=== PATIENT | female | born 1965 | race Caucasian/White ===

== ENCOUNTER 2021-05-03 11:35 | Inpatient (IN) | payer OTHER ==
[~2021-05-03] VITALS: Ht 167.6 cm; Wt 109.1 kg
[~2021-05-03 11:35] MED LIST: BUPROPION HCL100 MG PO; LEVOXYL88 MCG PO; PROZAC20 MG PO; TRAMADOL HCL50 MG PO; TRAZODONE HCL50 MG PO
[2021-05-03] MEDS ORDERED: DICLOFENAC SODI75 MG PO (12:24)
[2021-05-03] MEDS ORDERED: BUPROPION HCL150 M2 PO (12:24)
--- NOTE | 2021-05-03 18:44 | NUR ---
PATIENT ADMITTED TO CCU FOR COVID PNA AT 1715. PATIENT PULLED FROM STRETCHER TO CCU BED X2 PERSON ASSIST. PT ON 15L NRB UPON ADMISSION. PATIENT'S ACCOMPANIES PATIENT UP TO CCU ROOM, BUT THEN WILL BE LEAVING PER CURRENT VISITOR POLICY. ADMISSION INTAKE COMPLETE. PATIENT TO RECEIVE IV REMDESEVIR AND DECADRON. PT ON CLEAR LIQUID DIET. TAM DRAINING CLEAR YELLOW URINE. FINE CRACKLES HEARD THROUGHOUT LUNGS. STARTING TO TITRATE PATIENT'S OXYGEN DOWN AND IS NOW CURRENTLY ON 6 L NC. PT IN SINUS RHYTHM. IV REMDESEVIR STARTED.
--- NOTE | 2021-05-03 19:53 | NUR ---
Patient resting on her left side. 4L nc in place. o2 sats 90%. Patient denies and further needs. call light in reach.
--- NOTE | 2021-05-03 21:15 | NUR ---
PATIENT RESTING ON HER BACK. REPORTS BACK PAIN /. PRN MEDS PROVIDED. TOLERATING 5L NC. LUNG SOUNDS ARE DIMINISHED THROUGHOUT. VS STABLE. PATIENT WILLING TO PRONE BUT NOT AT THIS TIME DUE TO BACK PAIN. WILL REEVALUATE AFTER PRN MEDS HAD TIME TO TAKE EFFECT. TAM CARE DONE. ASSISTED PATIENT WITH WASHING HER FACE. PATIENT DENIED GI UPSET. TOLERATING CLEAR LIQUIDS. ALLOWED PATIENT TO REST. CALL LIGHT IN REACH.
--- NOTE | 2021-05-03 23:00 | NUR ---
PATIENT PROVIDED WITH A SNACK WHICH SHE TOLERATED WELL. PATIENT ON 4L NC WITH HUMIDIFICATION. TOLERATING WELL. PRN COUGH MEDS PROVIDED. PATIENT DENIED BEING TIRED AT THIS TIME AND IS WATCHING TV. AGREES TO PRONE WHEN SHE IS READY FOR SLEEP. CALL LIGHT IN REACH.
--- NOTE | 2021-05-04 00:40 | NUR ---
CARE ASSUMED FROM EJ ROBERTS AT THIS TIME. ASSESSMENT COMPLETED. PT AWAKE AND WATCHING TV. DENIES PAIN. LUNGS DIM, 4L O2 VIA NC IN PLACE. DENIES SOB. HR REGULAR. BOWEL TONES ACTIVE, DENIES NAUSEA. IV INTACT AND SALINE LOCKED. VITAL SIGNS STABLE. TAM PATENT. PT DENIES NEEDS AT THIS TIME, CALL LIGHT WITHIN REACH.
--- NOTE | 2021-05-04 02:27 | EKG ---
[facility] [address] [facility] [place] [address] Signed Normal sinus rhythm Incomplete right bundle branch block Borderline ECG No previous ECGs available Confirmed by ALLISON THOMPSON MD ([id number]) on 05/04/2021 2:27:32 AM Electronically Signed By: ALLISON THOMPSON MD 05/04/21 0227 PATIENT NAME: RUSLAN TALBERT TORRES Electrocardiogram DATE OF : 67 PHYSICIAN: ALLISON THOMPSON MD REPORT #: [id number] REPORT IS CONFIDENTIAL AND NOT TO BE RELEASED WITHOUT AUTHORIZATION
--- NOTE | 2021-05-04 02:51 | NUR ---
IN TO CHECK ON PT WHO REMAINS AWAKE, STATES SHE HASN'T BEEN ABLE TO SLEEP MUCH. DENIES DISCOMFORT OR COMPLAINTS. PT DENIES NEEDS, VITAL SIGNS REMAIN STABLE. CALL LIGHT WITHIN REACH.
--- NOTE | 2021-05-04 04:35 | NUR ---
PT APPEARS TO BE SLEEPING AT THIS TIME, NO APPARENT DISTRESS. RESPIRATIONS EVEN AND UNLABORED, 4L VIA NC REMAINS IN PLACE.
--- NOTE | 2021-05-04 05:00 | NUR ---
PT CALLED TO REPORT THAT SHE WAS SWEATY AND STARTING TO CHILL. AFEBRILE AT THIS TIME, PT DECLINED NEEDING TYLENOL. NEW LINENS AND GOWN PROVIDED. BLOOD DRAWN FOR MORNING LABS FROM LEFT IV. TAM EMPTIED AND FRESH WATER PROVIDED. PT DENIES FURTHER REQUESTS.
--- NOTE | 2021-05-04 07:33 | NUR ---
REPORT RECIEVED FROM EJ ROBERTS. THIS RN ASSUMING CARE OF PT. PT RESTING IN BED WITH EYES CLOED. O2 AT 92% ON 4L O2 BY NC. PT ALLOWED TO REST. CALL LIGHT WIHTIN REACH. BED RAILS UP.
--- NOTE | 2021-05-04 09:00 | NUR ---
MORNING ASSESSMENT AND MEDICATION DUE. PT RESTING IN BED WITH EYES CLOSED. AWAKENS TO VOICE. PT ALERT AND ORIENTED TO ALL. REPORS 8/10 PAIN BACK WITH A BASELINE OF 6-7/10. SEE MAR FOR MEDICATON GIVEN. PT DENIES NAUSEA. 1 PERSON ASSIST UP TO CHAIR. PT SHUFFLES, BUT IS ABLE TO REPOSITION SELF. OXGYEN SATRUATIONS REMAIN ABOVE 90% ON 5L O2 BY NC. CLEAR LIQUIDS PROIVDED, BLOOD SUGAR 83, REGULAR JELLOW AND JUICE GIVEN. PT DENIES ADDITIONAL REQUESTS OR COMPLAINTS. CALL LIGHT WITHIN REACH. PT REMAINS UP TO CHAIR, EATING JELLOW AND FLUIDS. TAM CATHETER SECURMENT DEVICE APPLIED.
--- NOTE | 2021-05-04 09:30 | NUR ---
MORNING ASSESSMENT AND MEDICATIONS DUE. PT RESTING WITH EYES CLOSED. PT DENIES PAIN AND NAUSEA AT THIS TIME. PT REPORTS SHE HAS BEEN HAVING OCCATIONAL DIARRHEA, NONE LAST NIGHT THAT SHE CAN REMEMBER. OXGYEN SATURTIONS ABOVE 90% ON 4L O2 BY NC. STAND BY ASSIST UP TO BEDSIDE COMODE. PT REPORTS NAUSEA WITH MOVEMENT (SEE MAR FOR MEDICAITON GIVEN). OXGYEN SATURATIOSN DROP TO 86% ON 4L O2 BY NC. OXGYEN INCREASED TO 16L O2 BY HIGH FLOW NC WITH MOVEMENT WITH OXGYEN SATURATIONS REMAINING 84-87% AND HEART RATE CLIMBING TO 100-110'S STAND ASSIST. BACK TO BED. VERY SHALLOW BREATHING NOTED. I.S. USE DEMONSTRATED, PT REACHES 500ML X5. COUGH NOTED WITH I.S. USE. PT ASSISTED INTO LEFT SIDE LYING POSITION. pT WEANED BACK TO 4L O2 BY NC TO MAINTAIN OXGYEN SATURATIONS ABOVE 90%. PT REPORTS FEELING COMFORTABLE. NO ADDITIONAL REQUESTS OR COMPLAINTS. CALL LIGHT WITHIN REACH. BED RAILS UP.
--- NOTE | 2021-05-04 10:13 | NUR ---
THIS GRAINING PRESS OPERATOR IN ROOM TO ASSIST EJ MOSS. 1PA-PATIENT FROM BED TO BSC. PATIENT VERY NAUSEOUS, CONTINUES TO KEEP EYES CLOSED WHILE MOVING. PATIENT QUITE DIAPHORETIC STILL. PATIENT NOW UP IN CHAIR, HAIR PUULED OFF NECK AND COOL WASHCLOTH PROVIDED. LINENS CHANGED.
--- NOTE | 2021-05-04 11:00 | NUR ---
REPORT GIVEN TO EJ CHIN WHO IS ASSUMING CARE OF PT.
--- NOTE | 2021-05-04 11:10 | NUR ---
THIS RN TO ROOM TO CHECK ON PT. PT RESTING ON LEFT SIDE, RESPIRATIONS EVEN AND UNLABOED. OXGYEN SATURATIOSN 95-97% ON 4L O2 BY NC. PT ALLOWED TO REST. BED RAILS UP. CALL LIGHT WITHIN REACH.
--- NOTE | 2021-05-04 12:00 | NUR ---
PT IN ROOM DRINKING FLUIDS. NO NEW CONCERNS NOTED AT THIS TIME. DID RECEIVED REPROT FROM LUBNA PAGAN ABOUT [phone].
[2021-05-04] MEDS ORDERED: METFORMIN HCL500 M1 PO (13:20)
--- NOTE | 2021-05-04 14:00 | NUR ---
LOBES AT THIS TIME ARE ACTUALLY CLEAR. PT REMAINS ON 4L O2 NC. NO PERIPH. EDEMA NOTED, ABD SOUNDS PRESENT. PT DOES PRONING INDEPENT. NO NEW CONCERNS NOTED AT THIS TIME.
--- NOTE | 2021-05-04 15:40 | NUR ---
MED REC COMPLETE
--- NOTE | 2021-05-04 16:00 | NUR ---
REPORT RECEIVED FROM EJ CHIN, THIS RN REASSUMING CARE OF PT. PT RESTING IN BED. OXGYEN SATURATIONS OF 90-91% ON 4L O2 BY NC. NO REQUESTS OR COMPLAINTS AT THIS TIME. CALL LIGHT WITHIN REACH. BED RAILS UP.
--- NOTE | 2021-05-04 16:45 | NUR ---
AFTERNOON ASSESSMENT DUE. THIS RN TO ROOM. PT RESTING IN BED WATCHING TV. PT DENIES PAIN AND REPORTS NAUSEA "ONLY IF I MOVE AROUND A LOT." OXGYEN SATURATIONS NOTED TO BE 85% ON 4L O2 BY NC. OXGYGEN INCREASED TO 6L O2 BY HIGH FLOW HUMIDIFIED NASAL CANULA. LUNG SOUNDS CLEAR. I.S. USE DEMONSTRATED REACHING 750ML X5. PRONING EDUCATION DONE WITH PT, PT VERBALIZES UNDERSTANDING OF PRONING TECHNIQUE AND BENIFITS BUT DECLINES AT THIS TIME. TAM CATHETER DRAINING CONCENTRATED YELLOW URINE. 150ML EMPTIED. PT REQUESTS REGULAR FOOD TO EAT, WILL CONSULT MD. NO ADDITIONAL REQUESTS OR COMPLAINTS. CALL LIGHT WITHIN REACH. BED RAILS UP.
--- NOTE | 2021-05-04 17:09 | NUR ---
MD CALLED AND STATES PTS DIET CAN BE ADVANCED TOLERATED. PT DENIES NAUSEA AND STATES SHE WOULD LIKE TO EAT. DIET ADVANCED TO REGULAR. DINNER ORDER PLACED.
--- NOTE | 2021-05-04 17:28 | NUR ---
PT HERE FOR COVID RELATED PNEUMONIA. DIET ADVANCED TO REGULAR DIET, PRN NAUSEA MEDICATIONS GIVEN IN AM. PT TOLERATING PO INTAKE THIS EVENING. 1 PERSON ASSIST UP TO BEDSIDE COMODE. PT INTOLERANT OF ACTIVITY WITH OXGYEN SATURATIONS DROPING TO 84% WITH 16L IN PLACE. PT REMAINED ON BED REST FOR THE REMAINDER OF THE DAY. PT AGREES TO SIDE LYING AND SEMI FOWLERS POSITON BUT HAS DECLINED TO PRONE THUS FAR. WITH BED REST PT ON 4L O2 BY HIGH FLOW NC FOR MOST OF THE DAY, INCREASED TO 6L O2 THIS EVENING OXYGEN SATURATIONS DROPED TO MID 80'S. TAM CATHETER REMAINS IN PLACE WITH CONCENTRATED YELLOW URINE, QUANTITY SUFFICIENT. I.S. EDUCATION DONE, USE ENSURED. PT DENIES PAIN THIS SHIFT. PT USES CALL LIGHT APPROPRIATLY AND MAKES NEEDS KNOWN.
--- NOTE | 2021-05-04 17:43 | NUR ---
EFFIE CALLED FOR UPDATE ON PT STATUS, NO ANSWER AT THIS TIME. MAILBOX FULL, UNABLE TO LEAVE MESSAGE FOR CALL BACK.
--- NOTE | 2021-05-04 18:14 | NUR ---
Update from Rn, pt feeling poorly. 024L. Will fu with pt when able to speak on phone.
--- NOTE | 2021-05-04 18:16 | NUR ---
DINNER DELIVERED TO PT. PT UP TO SEMIFOWLERS POSITION. PT DENIES NAUSEA, EATING SMALL BITES. OXGYEN SATURATION 88-92% ON 6L O2 BY NC. COUGH NOTED, PT ENCOURAGED TO TRY COUGH MEDICAITON. PT AGREES, SEE MAR FOR MEDICATION GIVEN. PT DENIES ADDIITONAL REQUESTS OR COMPLAINTS. CALL LIGHT WITHIN REACH. BED RAILS UP.
--- NOTE | 2021-05-04 21:15 | NUR ---
PATIENT PROVIDED WITH SCHEDULED MEDS. PRN COUGH MEDS. ASSISTED PATIENT TO PERFORM PM CARE. HAIR BRUSHED. TEETH BRUSHED. PATIENT TOLERATING 6L NC. LUNGS ARE CLEAR. PATIENT TURNED TO RIGHT SIDE. VS STABLE. TAM CARE DONE. CALL LIGHT IN REACH.
--- NOTE | 2021-05-05 00:25 | NUR ---
PATIENT TITRATED TO 4L NC. SLEEPING SOUNDLY ON HER RIGHT SIDE. O2 SATS 97% ON 6L. RR 16-18. ALLOWED PATIENT TO REST.
--- NOTE | 2021-05-05 05:30 | NUR ---
PATIENT CONTINUES TO HAVE O2 SATS 94-95% ON 4L NC. TITRATED TO 3L NC. ATTEMPT IV SITE X2, LABS DRAWN BUT NO NEW SITE ESTABLISHED. PATIENT DENIED PAIN OR NAUSEA. DRY COUGH NOTED. TAM EMPTIED. VS STABLE. BREAKFAST ORDER RECEIVED.
--- NOTE | 2021-05-05 07:17 | NUR ---
REPORT RECEIVED FROM EJ ROBERTS. PT RESTING IN BED WITH EYES CLOSED ON BACK, RESPIRATIONS EVEN AND UNLABORED. OXGYEN SATURATION 94% ON 3L O2 BY NC. BED RAILS UP. CALL SEMAJ HAHN.
--- NOTE | 2021-05-05 08:02 | NUR ---
THIS CRIME INVESTIGATOR SPECIAL AGENT IN ROOM TO ASSIST PATIENT WITH AM CARE. PATIENT SAT UP ON SIDE OF BED AND TRANSFERED TO CHAIR,1PA. TOLERATED WELL. 15LHF WITH TRANSFER. PATIENT NOW IN CHAIR EATING BREAKFAST. FACE AND HANDS WASHED. PATIENT "ISN'T TOO NAUSEOUS" THIS MORNING. RT IN TO SEE PATIENT, ENCOURAGED TO USE "IS" AND DEEP BREATHING. PATIENT COUGHING DURING ACTIVITY THIS MORNING, USED EMESIS BAG FOR PHLEM. TAM EMPTIED. CALL LIGHT AND PERSONAL ITEMS IN REACH. LINENS CHANGED. NO OTHER NEEDS AT THIS TIME
--- NOTE | 2021-05-05 08:12 | NUR ---
PATIENT REMAINS IN RECLINER ON 8LHF. O2 SATS 91-93%.
--- NOTE | 2021-05-05 08:24 | NUR ---
PATIENT IS NOW ON 6L HF. O2 SATS STILL 91-94. EJ IRVIN NOTIFIED MEHRAN PRIMARY RN IS IN ANOTHER ROOM.
--- NOTE | 2021-05-05 08:46 | NUR ---
MORNING ASSESSMENT AND MEDICATION DUE. PT UP TO CHAIR, HAD ASSISTANCE FROM [employer] MEMBER WHO RAISED OXGYEN LEVE TO 15L DURING ACTIVITY AND THEN BEGAN TO WEAN PT BACK DOWN. PT AT 6L O2 WHEN THIS RN ENTERED ROOM WHILE UP TO CHAIR. OXGYEN SATURATIONS 96%. PT WEANED DOWN TO 2L O2 BY NC WITH OXYGEN SATURATIONS MAINTAINING ABOVE 90%. LUNG SOUNDS SHOW SMALL AMOUNT OF CRACKELS IN LOWER LOBES. PT DEMONSTRATES USE OF I.S. REACHING 750ML X5. COUGH INCREASES WITH I.S. USE. COUGH MEDICAITON GIVEN. PT REPORTS A PRODUCTIVE COUGH WITH YELLOW THICK SPUTUM, SMALL AMOUNTS NOTED. NORMAL SINUS RHYTHEM NOTED ON MONITOR. PT ABLE TO EAT ~25% OF BREAKFAST. PT DENIES ADDITIONAL REQEUSTS OR COMPLAINTS. WARM BLANKET PROVIDED. MEDICATION GIVEN. CALL LIGHT WITHIN REACH.
--- NOTE | 2021-05-05 09:26 | NUR ---
PUMP ALARMING, INFUSION AND FLUSH COMPLETE. PT REMAINS UP TO CHAIR. 95% OXGYEN ON 2L O2 BY NC. PT RESTING WITH EYES CLOSED, RESPIRATIONS EVEN AND UNALBORED. IV FLUSHED AND SALINE LOCKED. PT ALLOWED TO REST. CALL LIGHT WITHIN REACH.
--- NOTE | 2021-05-05 10:15 | NUR ---
THIS RN TO ROOM TO CHECK ON PT. LUNCH ORDER PLACED. PT REPORTS NEED TO USE THE COMODE. OXGYEN INCREASED TO 6L O2 FOR ACTIVITY WITH SATURATIONS CLIMBING TO 99%. PT WEAEND TO 4L O2 WITH ACTIVITY AND MAINTAINS OXGYEN SATURATIONS ABOVE 90%. STAND BY ASSIST UP TO BED SIDE COMODE. PT HAS SMALL FORMED BOWEL MOVEMENT. PT ASSISTED WITH ANASTASIA CARE. STAND BY ASSIST BACK TO BED. MD TO BEDSIDE FOR ROUNDS. VERBAL ORDERS TO REMOVE TAM CATHTER. CATHER REMOVED PER PROTOCOL. PT TOELRATED WELL. REMAINING 75ML OF CLEAR YELLOW URINE RECORDED. PT REPORTS BODY ACHES HAVE RESOLVED. ORAL FLUIDS ENCOURAGED. PT DENES ADDITIONAL REQUESTS OR COMPLAINTS. CALL LIGHT WITHIN REACH.
--- NOTE | 2021-05-05 11:18 | NUR ---
REPORT CALLED TO EJ TSE WHO IS ASSUMING CARE OF PT UPON TRANSFER. PT TRANSFERED TO MED/SURG BY THIS RN. REMAINED ON 2L O2 BY NC FOR TRANSFER. TRANSFERED IN CHAIR.
--- NOTE | 2021-05-05 11:35 | NUR ---
TRANSFER DELYED R/T NURSE AVALIABILITY. PT TRANSFERED AT THIS TIME. VITAL SIGNS STABLE. PT WEANED TO ROOM AIR IN MED/SURG ROOM WHILE WAITING FOR PTS RN. PT TOLERATES ROOM AIR WITH OXYGEN SATURATIONS 92-94%. PTS RN UPDATED. PT DENIES ADDITIONAL REQUESTS OR COMPLAINTS. CALL LIGHT WITHIN REACH. NO ADDITIONAL REQUESTS OR COMPLAINTS.
--- NOTE | 2021-05-05 12:00 | NUR ---
PT TRANSFERED FROM CCU TO ROOM 116 VIA RECLINER, SHE IS ALERT AND ORIENTED. VERBALIZED NO NEEDS AT THIS TIME.
--- NOTE | 2021-05-05 13:36 | NUR ---
Patient is resting in bed. Patient had a shower, SBA. Lotion was put onto the patients legs and feet after her shower, 1PA. Call light is in reach and patient has no requests at this time.
--- NOTE | 2021-05-05 15:06 | NUR ---
PT RESTING IN BED ALERT TO RN ROUNDING. SHE VERBALIZED NO NEEDS AT THIS TIME. SHE DENIES PAIN OR SIGNIFICANT COUGHING. NO DISTRESS NOTED. MONITORING OXYGEN SATURATION ON TELE PULSE OXIMETRY.
--- NOTE | 2021-05-05 15:40 | NUR ---
Pt states she lives in a 2 story house and uses first floor. 7 steps into home, was able to navigate steps. 0 DME. She lives with her spouse, he will be able to assist her with shopping, cooking, transpor tation. Denies needs for dc, spouse will stay with her.
--- NOTE | 2021-05-05 15:43 | NUR ---
If pt is in need of 02 on dc, she would like 02 ordered from [employer].
--- NOTE | 2021-05-05 16:24 | NUR ---
Patient is going to try to sleep.
--- NOTE | 2021-05-05 18:15 | NUR ---
PT TRANSFERED FROM CCU 1230 TO ROOM 116, PT HAD BEEN ON ROOM AFTER TRANSFER WHILE UP IN RECLINER OXYGEN SATURATION 92%, PT SHOWERED WITH 4L OXYGEN, THEN WENT TO BED WHILE SLEEPING DESATURATED ON ROOM AIR, REQUIRED 2L OXYGEN TO MAINTAIN 95%. PT ONE PERSON ASSIST. TOLERATING DIET WELL. NO NAUESA. DENIES PAIN. COOPERATIVE WITH CARE.
--- NOTE | 2021-05-05 19:30 | NUR ---
REPORT RECEIVED FROM DAYSHIFT NURSE. PATIENT SITTING IN BED WATCHING TV. PATIENT HAS NO CURRENT CARE NEEDS. CALL LIGHT IS IN REACH.
--- NOTE | 2021-05-05 21:00 | NUR ---
PATIENT TOOK PM MEDS WITHOUT DIFFICULTY WITH THEM PRN COUGH SYRUP AND TESSALON RADHA ALSO GIVEN. PATIENT WANTED A BREAK FROM NASAL CANNULA AND IS ON 2L/OXYMASK AT THIS TIME. ICE WATER REFILLED AND PATIENT HAD NO OTHER CARE NEEDS AT THIS TIME. CALL LIGHT IS IN REACH.
--- NOTE | 2021-05-05 22:00 | NUR ---
1PSBA TO THE BATHROOM AND BACK TO BED. HYPEROXYGENATED PATIENT ON 6L/NC BEFORE AND DURING TRIP INTO THE BATHROOM. PATIENT'S WATER REFILLED. PATIENT BACK ON 2L/OXYMASK AGAIN. NO OTHER CARE NEEDS AT THIS TIME. CALL LIGHT IS IN REACH.
--- NOTE | 2021-05-06 00:10 | NUR ---
PATIENT RESTING QUIETLY IN LOW FOWLERS POSITION ON 2L/OXYMASK WITH O2 SAT OF 96% AND HR=60. RESPIRATIONS REGULAR AND EVEN. CALL LIGHT IS IN REACH.
--- NOTE | 2021-05-06 02:21 | NUR ---
PATIENT CONTINUES TO REST QUIETLY IN LOW FOWLERS POSITION, RESPIRATIONS REGULAR AND EVEN, EYES ARE CLOSED, SATS 96% ON 2L/OXYMASK WITH HR=58. CALL LIGHT IS IN REACH.
--- NOTE | 2021-05-06 04:08 | NUR ---
PATIENT CONTINUES TO REST QUIETLY IN BED WITH EYES CLOSED AND EQUAL AND REGULAR RESPIRATIONS. NO CARE NEEDS NOTED AT THIS TIME. CALL LIGHT IS IN REACH.
--- NOTE | 2021-05-06 05:50 | NUR ---
IN TO GET VITALS, ICE WATER PROVIDED, PT UP TO VOID, NO FURTHER NEEDS
--- NOTE | 2021-05-06 06:42 | NUR ---
PATIENT INFORMED ME SHE WAS ABLE TO GET SOME SLEEP, AND IS ON 2L/NC AT THIS TIME WITH O2 SATS OF 94% AND HR=65. PATIENT NOT HAVING ANY NAUSEA OR PAIN AT THIS TIME. ICE WATER REFILLED AND PATIENT HAS NO OTHER NEEDS. CALL LIGHT IS IN REACH.
--- NOTE | 2021-05-06 07:31 | NUR ---
REPORT RECEIVED FROM EJ LYNN. PT RESTING IN BED WITH EYES CLOSED. RESPIRATIONS EVEN AND UNLABORED. PT ALLOWED TO REST. BED RAILS UP. CALL LIGHT WITHIN REACH. OXGYEN SATURATIONS 96% 2L O2 BY NC.
--- NOTE | 2021-05-06 09:00 | NUR ---
MORNING ASSESSMENT AND MEDICATION DUE. PT RESTING IN BED. ALERT AND ORIENTED. STAND BY ASSIST UP TO CHAIR. PT REPRTS 3/10 BODY ACHES AND REQUESTS TYLENOL IN ADDITION TO NORMAL MEDICAITONS. SEE MAR FOR MEDICAITON GIVEN. LUNG SOUNDS CLEAR IN UPPER LOBES, FINE CRACKELS NOTED IN BASES. PT REMAINS ON 2L O2 BY [place] WITH OXYGEN SATURATIONS 92-95%. PT DEMONSTRATES USE OF I.S. REACHING 1000ML X5. I.S, PRONING, HOME OXYGEN USE, AND FOLLOW UP EDUCATION DONE WITH PT. PT VERBALIZES UNDERSTANDING AND STATES HER QUESTIONS HAVE BEEN ANSWERED. PT EATING BREAKFAST, MEDICATIONS GIVEN. NO ADDITIONAL REQUESTS OR COMPLAINTS AT THIS TIME. CALL SEMAJ HAHN.
--- NOTE | 2021-05-06 10:45 | NUR ---
THIS RN TO ROOM TO CHECK ON PT. PT RESTING IN CHAIR WITH EYES CLOSED. OXGYEN SATURATION 98% ON 2L O2 BY NC. PT WEANED TO ROOM AIR. MAINTAINS OXYGEN SATURATIONS ABOVE 90-95% WHILE RESTING. PT UP TO RESTROOM WITH STAND BY ASSIST TO RESTROOM. PT DROPS TO 87% ON ROOM AIR WITH ACTIVITY. STAND BY ASSIST BACK TO CHAIR. PT RECOVERS TO 92% AFTER 1 MINUTES TIME. PT REPORTS SHE IS CONCERNED ABOUT DIZZINESS, REPORTS SHE HAS HAD TROUBLE WITH DIZZINESS IN THE PAST WHEN SHE DOESN'T EAT ENOUGH. MD TO BEDSIDE FOR ROUNDS. PT DENIES ADDITIONAL REQUESTS OR COMPLAINTS. CALL LIGHT WITHIN REACH. PT REMAINS ON ROOM AIR AT THIS TIME. WITH OXYGEN SATURATIONS AGOVE 90%.
[2021-05-06] MEDS ORDERED: DEXAMETHASONE6 MG PO (11:49)
--- NOTE | 2021-05-06 12:00 | NUR ---
PTS , EFFIE CALLED, WITH UPDATE ON DISCHARGE PLAN. NO ANSWER. VOICE MAILBOX NOT ACCEPTING MESSAGES.
--- NOTE | 2021-05-06 12:16 | NUR ---
PT UPDATED ON PLAN FOR DISCHARGE. PT ATTEMPTING TO CONTACT FOR [facility] HOME. IV DC'D PER PROTOCOL. GAUZE AND COBALYSSIA APPLIED. PT REMAINS AT 94% ON ROOM AIR. NO ADDITIONAL REQUESTS OR COMPLAINTS. CALL LIGHT WITHIN REACH. PT DECLINES LUNCH.
--- NOTE | 2021-05-06 12:56 | NUR ---
PT READY FOR DISCHARGE. PT UP TO DRESS SELF, NO ASSISTANCE NEEDED. PT REMAINS ON ROOM AIR WITH OXYGEN SATURATIONS ABOVE 90%. DISCHARGE INSTRUCTIONS REVIEWED WITH PT. PT VERBALIZES UNDERSTANDING OF INSTRUCTIONS, MEDICATIONS, FOLLOW UP, AND COVID QUARENTEENING. PT STATES HER QUESTIONS HAVE BEEN ANSWERED. PT WHEELED FROM MED/SURG FOR RIDE HOME, MASK IN PLACE. NO ADDITIONAL REQUESTS OR CONCERNS.
--- NOTE | 2021-05-06 13:30 | NUR ---
PTS ARRIVED TO [facility]. UPDATED ON DISCHARGE PLAN. PT WHEELED FROM HOSPITAL TO MEET INSTEAD OF FRIEND/TRANSPORT.
== END 2021-05-06 13:20 | disposition home or self-care (01) | DRG 177 ==
LOC: ED 11:35 → CCU 16:51 → MS 05-05 11:45
PROVIDERS: ADMIT Internal Medicine; ATTEND Internal Medicine
PROC: 8E0ZXY6 Isolation (ICD-10-PCS; principal; 2021-05-03)
PROC: 3E0DX3Z Introduction of Anti-inflammatory into Mouth and Pharynx, External Approach (ICD-10-PCS; 2021-05-03)
PROC: XW033E5 Introduction of Remdesivir Anti-infective into Peripheral Vein, Percutaneous Approach, New Technology Group 5 (ICD-10-PCS; 2021-05-04)
DX: U07.1 COVID-19 (principal); J12.82 Pneumonia due to coronavirus disease 2019; J96.01 Acute respiratory failure with hypoxia; E03.9 Hypothyroidism, unspecified; E11.9 Type 2 diabetes mellitus without complications; F32.9 Major depressive disorder, single episode, unspecified; Z90.711 Acquired absence of uterus with remaining cervical stump; Z98.890 Other specified postprocedural states; Z88.2 Allergy status to sulfonamides; Z79.899 Other long term (current) drug therapy
CPT/HCPCS: 71045; 71260; 80053; 83735; 84484; 85025; 85379; 93005; 93010; 94640; 94760; 94761; A9270; C9803; J1650; J2405; J7030; J7050; Q9967; U0003

== ENCOUNTER 2022-10-01 06:14 | Day surgery (SDC) | payer OTHER ==
[~2022-10-01] VITALS: Ht 165.1 cm; Wt 118.0 kg
[~2022-10-01 06:14] MED LIST changes: +BUPROPION HCL150 M2 PO; +DEXAMETHASONE6 MG PO; +DICLOFENAC SODI75 MG PO; +LISINOPRIL20 MG PO; +METFORMIN HCL500 M1 PO
--- NOTE | 2022-10-01 08:10 | NUR ---
10/01/22 0810 Erica Bush 0806- PT ARRIVES TO PACU AWAKE AND TALKING. PT REPORTS NO PAIN OR NAUSEA. PT EASILY FALLS TO SLEEP WHEN NOT BEING TALKED TO. RESP EVEN AND UNLABORED. OXYGEN SAT HIGH 90'S ON 3L VIA CO2 NC.
--- NOTE | 2022-10-01 14:18 | NUR ---
PT ALERT, ORIENTED AND SUPPORTED BY HER , WHO WILL REMAIN FOR DC. PT HAS HAD SCOPE PREVIOUS, ALL QUESTIONS ASKED ANSWERED. GRINDER HARDBOARD IN FOR PT-GAVE BLESSING AND WILL FOLLOW
--- NOTE | 2022-10-02 17:43 | OR ---
[facility] [address], [place] [address] Signed DATE OF OPERATION: 10/01/2022 SURGEON: Lana Solorzano MD PREOPERATIVE DIAGNOSES: 1. Colon screening. 2. Longstanding history of diarrhea alternating with constipation, rare blood per rectum. POSTOPERATIVE DIAGNOSIS: Sigmoid diverticulosis. PROCEDURE: Total colonoscopy to cecum with biopsy of rectum. ANESTHESIA: Intravenous sedation, fentanyl 100 mcg and Versed 6 mg. INDICATIONS: This 57-year-old morbidly obese white woman is a patient of Dr. Douglas. She underwent colonoscopy in 2010. She complains of constipation alternating with diarrhea and this has been going on for quite some time. She has rare and episodic blood per rectum. She has no family history of colon cancer. Previous colonoscopy showed no sign of abnormality. She is admitted at this time to undergo colonoscopy. She understands the risks of bleeding, infection, and perforation. Additionally noted that she does take metformin, which may or may not contribute to her current issue of diarrhea. FINDINGS: The prep was good. Complete colonoscopy was undertaken to the cecum. She had scattered diverticula of the sigmoid. There was no sign of inflammatory bowel disease, polyps, or cancer. Biopsies were taken of the rectum to assess for occult colitis. DESCRIPTION OF PROCEDURE: The patient was brought to the endoscopy suite and placed in lateral decubitus position given intravenous sedation to the point of slurred speech and nystagmus. Digital rectal examination was normal. An Olympus video colonoscope was passed in the rectum and manipulated throughout the colon. Good prep was noted. The scope was easily passed to the cecum. The ileocecal valve and appendiceal orifice were normal. The scope was withdrawn from that point. Examination throughout showed good visualization of mucosa, which was entirely normal. Electronically Signed By: LANA SOLORZANO MD 10/02/22 1743 PATIENT NAME: RUSLAN TALBERT OPERATIVE REPORT DATE OF : 67 REPORT #: [id number] PHYSICIAN: LANA SOLORZANO MD PCP: JAVIER DOUGLAS MD REPORT IS CONFIDENTIAL AND NOT TO BE RELEASED WITHOUT AUTHORIZATION [facility] [address], [place] [address] Signed Biopsies taken of the rectum to rule out occult colitis. Retroflexed view was normal. The scope was removed, then the patient taken to the recovery room in good condition. CONCLUDING DIAGNOSIS: Diverticulosis, no evidence grossly of polyps cancer or colitis. PLAN: We would offer consideration of low FODMAP diet given her symptoms. We will see her back in 4-6 weeks after a trial of a low FODMAP diet. MD SHAKIRA Crowe/YULYL /[id number] cc: Dr. Douglas Copies: ~ Electronically Signed By: LANA SOLORZANO MD 10/02/22 1743 PATIENT NAME: RUSLAN TALBERT OPERATIVE REPORT DATE OF : 67 REPORT #: [id number] PHYSICIAN: LANA SOLORZANO MD PCP: JAVIER DOUGLAS MD REPORT IS CONFIDENTIAL AND NOT TO BE RELEASED WITHOUT AUTHORIZATION
== END 2022-10-01 08:43 | disposition home or self-care (01) ==
LOC: DS 06:14 → OPS 06:14 → DS 07:30 → OPS 07:30
PROVIDERS: ATTEND Surgery
PROC: 0DDQ8ZX Extraction of Anus, Via Natural or Artificial Opening Endoscopic, Diagnostic (ICD-10-PCS; principal; 2022-10-01 07:30)
DX: K62.1 Rectal polyp (principal); K57.30 Diverticulosis of large intestine without perforation or abscess without bleeding; E66.01 Morbid (severe) obesity due to excess calories; E03.9 Hypothyroidism, unspecified; Z86.16 Personal history of COVID-19
CPT/HCPCS: 99153; G0500; J2250; J3010; J7121